=== PATIENT | female | born 1950 | race Caucasian/White ===

== ENCOUNTER 2018-10-06 14:53 | Inpatient (IN) | payer OTHER, MEDICARE ==
[~2018-10-06] VITALS: Ht 160 cm; Wt 66.7 kg
[2018-10-06 14:59] VITALS: Ht 160 cm; Wt 66.7 kg
--- NOTE | 2018-10-06 15:06 | NUR ---
PT HERE FOR CHEST PAIN THAT STARTED LAST NIGHT NON PROVOKED AND RADIATING TO THE LEFT SHOULDER. PAIN UPON ARRIVAL 08/09. 1 NITRO GIVEN BY EMS. NO ASA GIVEN DUE TO PATIENT STATING SHE CANNOT HAVE ASP DUE TO RECENT BOWEL OBSTRUCTION. PT ARRIVES ALERT AND ORIENTED AND SLIGHTY ANXIOUS. APPEARS PALE IN COLOR. ABD SOFT AND DISTENDED DUE TO B. OBSTRUCTION. PT CONNECTED TO TECHNICIAN AUTOMATIC AND EKG PERFORMED. PRESSURE LIKE PAIN INTERMITTENT. DR WEEMS AT BEDSIDE FOR EVAL
[2018-10-06 15:36] LABS: PLATELET COUNT 221 x10^3mcL (130-400)
[2018-10-06 15:37] LABS: CALCIUM 7.7 mg/dL (8.5-10.1); CARBON DIOXIDE 25.8 mmol/L (21-32); CHLORIDE SERUM 107 mmol/L (98-107); CREATININE SERUM 0.7 mg/dL (0.6-1.0); GFR1 > 60 mL/min; GLUCOSE SERUM 166 mg/dL (74-106); POTASSIUM SERUM 3.3 mmol/L (3.5-5.1); SODIUM SERUM 141 mmol/L (136-145)
[2018-10-06 15:38] LABS: BASOPHIL % 0 % (0-2); RED CELL DISTRIBUTION WIDTH 17.4 % (11.5-14.5)
[2018-10-06 15:44] LABS: ALKALINE PHOSPHATASE 156 U/L (46-116); ALT/SGPT 16 U/L (14-59); AST/SGOT 14 U/L (15-37); BILIRUBIN TOTAL 0.22 mg/dL (0.20-1.00)
[2018-10-06 15:50] LABS: ALBUMIN 1.9 g/dL (3.4-5.0); TOTAL PROTEIN, SERUM 5.1 g/dL (6.4-8.2)
[2018-10-06 16:14] LABS: rbc morphology (normal/abnorm) ABNORMAL (NORMAL)
[2018-10-06 16:16] LABS: ovalocyte/elliptocyte 1+; tear drop cell (dacryocyte) 1+
--- NOTE | 2018-10-06 16:43 | NUR ---
LAB AT BEDSIDE FOR T AND C BLOOD
--- NOTE | 2018-10-06 16:50 | NUR ---
PT AWARE OF BLOOD TRANSFUSION AND DOES NOT WANT ANOTHER IV STICK ATTEMPT. PT HAS 22G TO LEFT AC. WILL LET TELE NURSE KNOW
[2018-10-06 17:54] VITALS: BP 137/59
--- NOTE | 2018-10-06 18:03 | NUR ---
ASSUMED CARE OF PATIENT. ARRIVED FROM ED WITH AND RN AT SIDE. PATIENT APPEARS TREMULOUS AND ANXIOUS AT THIS TIME. MEDICATION LIST RECIEVED FROM GRAND DAUGHTER.
--- NOTE | 2018-10-06 18:05 | NUR ---
RECEIVED PT FROM ER, PT ADMIT FOR CHEST PAIN AND ANEMIA, PT IS A/O X4, VERBAL REPONSIVE, BUT PT HAS GENERALIZED TREMOR. PER STATMENT. PT HAS CENTRAL TREMOR PROBLEM. LUNG SOUND CLEAR BILATERAL, NO COUGH, NO SOB, PT IS ON TELE 1, NSR, DENY ANY CHEST PAIN AT THIS MOMENT, BOWEL SOUND PRESENT ALL 4 QUADRANTS, NO DISTENTION, NO TENDER. PEDAL PULSE PRESENT BOTH FEET, +1 EDEMA BLE, IV AT LEFT AC, NO LEAKING, NO INFILTRATION. ALL ADLS ASSIST, ALL NEED MET, CALL LIGHT IN REACH, WILL CONTINUE TO MONITOR.
[2018-10-06] MEDS ORDERED: NOR10 PO (18:12)
[2018-10-06] MEDS ORDERED: C-10001000 MG PO (18:13)
[2018-10-06] MEDS ORDERED: CARVEDILOL6.25 M1 PO (18:14)
[2018-10-06] MEDS ORDERED: PREDNISONE2.5 MG PO (18:15)
[2018-10-06] MEDS ORDERED: FERROUS SULFAT325 M2 PO (18:17)
[2018-10-06] MEDS ORDERED: FLUTICASON0.05 MG/Ac NS (18:20)
[2018-10-06] MEDS ORDERED: OMEPRAZOLE40 M1 PO (18:21)
[2018-10-06] MEDS ORDERED: TRAMADOL HCL50 MG PO (18:22)
[2018-10-06] MEDS ORDERED: FLECTOR1.3% TOP (18:24)
[2018-10-06] MEDS ORDERED: SPIRIVA RE2.5 MCG/Ac IH (18:25)
--- NOTE | 2018-10-06 18:32 | NUR ---
PER , EGD/COLONOSCOPY TOMORROW. WHEN PATIENT NOTIFIED, STATES SHE HAS DONE A COLONOSCOPY A FEW MONTHS AGO AND REFUSES TO DO ANOTHER. DR. ROSS NOTIFIED. STATES HE WILL COME IN AN DISCUSS WITH PATIENT AT ANOTHER TIME. TO HOLD OFF ON PROCEDURES FOR NOW. LAB ORDERS FOR VITAMIN B12, FOLIC ACID, FERRITIN, AND TIBC ORDERED.
--- NOTE | 2018-10-06 18:43 | NUR ---
MEDICATION RECONCILIATION COMPELTE, ATTEMPTING TO CONTACT , NO ANSWER.
--- NOTE | 2018-10-06 18:44 | NUR ---
PATIENT SEEN SITTING IN ROOM EATING DINNER. NO COMPLAINTS OF PAIN OR DISCOMFORT AT THIS TIME. FAMILY REMAINS AT BEDSIDE. WILL ENDORSE CARE TO ONCOMING RN.
--- NOTE | 2018-10-06 19:00 | NUR ---
[facility] SECRETARY DR.SIRRI MONTES.
--- NOTE | 2018-10-06 19:03 | NUR ---
PER ; TO HOLD SPIRIVA, DICLOFENAC, AND TRAMADOL. CONTINUE ALL OTHER HOME MEDICATIONS.
--- NOTE | 2018-10-06 20:01 | NUR ---
PT RECIEVED FROM DAY NURSE. PT RESTING IN BED COMFORTABLY AT THIS TIME. FAMILY AT BEDSIDE. A/OX4, CALM AND COOPERATIVE AT THIS TIME. TELE 1 NSR, DENIES CP, N/V, DIZZINESS, OR PALPATATIONS. PALPABLE PULSES, BLE EDEMA NOTED. BREATHING EVEN AND UNLABORED ON RA. SPO2 95%. ABD SOFT AND ROUND. DENIES PAIN TO PALPATION. TREMOR NOTED. PT STATES SHE HAS A TREMOR AT BASELINE. PT TO RECIEVE 1 UNIT PRBC TONIGHT. PT AND FAMILIES QUESTIONS AND CONCERNS ADDRESSED. BED AT LOWEST POSITION. CALL LIGHT WITHIN REACH. WILL CONTINUE TO MONITOR.
--- NOTE | 2018-10-06 20:47 | NUR ---
DR GOMES PAGED. DR GOMES STATED NO TYLENOL AND BENEDRY NEEDED PRE INFUSION AND NO LASIX NEEDED POST TRANSFUSION. INFORMED DR GOMES ABOUT PTS K 3.3, DR GOMES ORDERED 40 MEQ KCL PO X1.
[2018-10-06 21:10] VITALS: BP 177/76
[2018-10-06 22:06] VITALS: BP 142/67
--- NOTE | 2018-10-06 22:15 | NUR ---
BLOOD ADMINISTRATION INITATED AT THIS TIME. VSS. NO S/S OF PAIN OR DISTRESS. SEE ASSESMENT FOR VITALS.
[2018-10-06 22:30] VITALS: BP 145/63
[2018-10-07 01:35] VITALS: BP 152/73
--- NOTE | 2018-10-07 01:35 | NUR ---
BLOOD TRANSFUSION COMPLETED AT THIS TIME. POST TRANSFUSION VITALS OBTAINED. VSS. SEE ASSESMENT FOR VITALS.
--- NOTE | 2018-10-07 02:37 | NUR ---
PT COMPLAINING OF 5/10 SHOULDER PAIN. MEDICATED PT WTIH PRN NORCO. WILL CONTINUE TO MONITOR.
[2018-10-07 05:54] VITALS: BP 143/70
[2018-10-07 06:30] LABS: BASOPHIL % 0.3 % (0-2); PLATELET COUNT 251 x10^3mcL (130-400)
--- NOTE | 2018-10-07 06:33 | NUR ---
PT RESTING IN BED COMFORATBLY, NO S/S OF PAIN AT THIS TIME. BREATHING E/U ON RA. NO SIGNS OF ACUTE DISTRESS AT THIS TIME. BED AT LOWEST POSITION.CALL LIGHT WITHIN REACH. WILL CONTINUE TO MONITOR
[2018-10-07 06:49] LABS: CARBON DIOXIDE 24.9 mmol/L (21-32); CHLORIDE SERUM 110 mmol/L (98-107); CREATININE SERUM 0.5 mg/dL (0.6-1.0); GFR1 > 60 mL/min; GLUCOSE SERUM 73 mg/dL (74-106); POTASSIUM SERUM 4.1 mmol/L (3.5-5.1); SODIUM SERUM 144 mmol/L (136-145)
--- NOTE | 2018-10-07 07:56 | NUR ---
AT 0735 - RECEIVED PATIENT FROM NIGHT NURSE. AWAKE, ALERT AND ORIENTED. SAT UP IN BED AND ASSITED WITH BREAKFAST. IV SALINE LOCKED. NO C/O PAIN.
[2018-10-07 08:13] VITALS: BP 131/53
[2018-10-07 08:13] LABS: RED CELL DISTRIBUTION WIDTH 17.2 % (11.5-14.5)
[2018-10-07 08:15] VITALS: BP 146/71
--- NOTE | 2018-10-07 08:26 | NUR ---
PATIENT USED BEDSIDE COMDE AND RETURNED TO BED. GOOD TOLERANCE OF ACTIVITY.
--- NOTE | 2018-10-07 10:10 | NUR ---
SEEN BY DR SANDS. NO ADDITIONAL CARDIAC TREATMENTS REQUIRED AT THIS TIME EXCEPT FOR ECHOCARDIOGRAM. PATIENT NOW SITTING IN CHAIR. CALL LIGHT WITHIN REACH.
--- NOTE | 2018-10-07 10:41 | NUR ---
PATIENT HAD EPISODE OF DARK GREEN DIARRHEA. PATIENT HAD WALKED SELF FROM CHAIR TO TOILET. WASHED AND RETURNED TO BED. INSTRUCTED PATIENT TO ALWAYS CALL FOR NURSE AND NOT TO ATTEMPT GETTING OUT OF BED ALONE. BED EXIT ALARM ACTIVE.
--- NOTE | 2018-10-07 11:47 | NUR ---
SEEN BY DR ROSS. FOR REGULAR DIET. PATIENT MAY BE DISCHARGED HOME FORM GI PERSPECTIVE. DR TOLD OF PATIENT'S DIARRHEA. COLLECT STOOL FOR C-DIFF.
[2018-10-07 12:22] VITALS: BP 164/73
--- NOTE | 2018-10-07 15:11 | NUR ---
FAMILY VISITING. UPDATED ON CURRENT PLAN OF CARE.
--- NOTE | 2018-10-07 15:25 | NUR ---
PHYSICAL THERAPY NOTE ATTEMPTED FOR EVAL, PATIENT REFUSED AT THIS TIME
--- NOTE | 2018-10-07 15:54 | NUR ---
SEEN BY DR GIBSON. PATIENT MAY DISCHARGE HOME TODAY AFTER ECHOCARDIOGRAM IS DONE. FAMILY AT BEDSIDE. PATIENT AND FAMILY AWARE OF PLAN.
--- NOTE | 2018-10-07 16:43 | NUR ---
ECHOCARDIOGRAM AT BEDSIDE.
--- NOTE | 2018-10-07 17:10 | NUR ---
O2 SAT REMAINS AT 96% ON ROOM AIR. PATIENT'S TRANSPORT HOME WILL BE AFTER 1800. GIVEN 6 UNITS REGULAR INSULIN PER SLINDING SCALE FOR BLOOD GLUCOSE LEVEL OF 234.
[2018-10-07 17:13] VITALS: BP 141/74
--- NOTE | 2018-10-07 17:40 | NUR ---
BOTH IV CATHETERS REMOVED INTACT. PATIENT TAKEN OFF CARDIAC MONITORING. PATIENT DRESSED AND PREPARED FOR DISCHARGE. PRINTED DISCHARGE INSTRUCTIONS GIVEN AND EXPLAINED TO PATIENT AND FAMILY. PATIENT EATING DINNER BEFORE LEAVING.
--- NOTE | 2018-10-07 18:08 | NUR ---
DISCHARGED HOME WITH FAMILY. TAKEN TO CAR IN WHEELCHAIR BY DIE MOUNTER.
== END 2018-10-07 18:04 | disposition home or self-care (01) | DRG 392 ==
LOC: ED 14:53 → MU 16:29 → DU 16:29 → MU 17:36 → DU 17:47
PROVIDERS: Emergency Medicine; ADMIT Internal Medicine Pulmonary Disease
PROC: 30233N1 Transfusion of Nonautologous Red Blood Cells into Peripheral Vein, Percutaneous Approach (ICD-10-PCS; principal; 2018-10-06)
DX: K21.9 Gastro-esophageal reflux disease without esophagitis (principal); D63.8 Anemia in other chronic diseases classified elsewhere; F41.9 Anxiety disorder, unspecified; I87.2 Venous insufficiency (chronic) (peripheral); I10 Essential (primary) hypertension; G25.0 Essential tremor; M06.9 Rheumatoid arthritis, unspecified; M32.9 Systemic lupus erythematosus, unspecified; Z99.81 Dependence on supplemental oxygen; Z68.28 Body mass index [BMI] 28.0-28.9, adult
CPT/HCPCS: G0378; J7030; J7050; J7512; P9016; Q0092

== ENCOUNTER 2019-03-28 19:37 | Inpatient (IN) | payer OTHER, MEDICARE ==
[~2019-03-28] VITALS: Ht 160 cm; Wt 70.0 kg
[~2019-03-28 19:37] MED LIST: C-10001000 MG PO; CARVEDILOL6.25 M1 PO; FERROUS SULFAT325 M2 PO; FLECTOR1.3% TOP; FLUTICASON0.05 MG/Ac NS; NOR10 PO; OMEPRAZOLE40 M1 PO; PREDNISONE2.5 MG PO; SPIRIVA RE2.5 MCG/Ac IH; TRAMADOL HCL50 MG PO
[2019-03-28 19:51] VITALS: Ht 160 cm; Wt 70.0 kg
[2019-03-28 20:43] LABS: BASOPHIL % 0.2 % (0-2); PLATELET COUNT 148 x10^3mcL (130-400)
[2019-03-28 20:55] LABS: RED CELL DISTRIBUTION WIDTH 21.6 % (11.5-14.5)
[2019-03-28 21:05] LABS: CALCIUM 7.7 mg/dL (8.5-10.1); CARBON DIOXIDE 21.3 mmol/L (21-32); CHLORIDE SERUM 117 mmol/L (98-107); CREATININE SERUM 0.6 mg/dL (0.6-1.0); GFR1 > 60 mL/min; GLUCOSE SERUM 102 mg/dL (74-106); POTASSIUM SERUM 4.4 mmol/L (3.5-5.1); SODIUM SERUM 145 mmol/L (136-145)
[2019-03-28 21:06] LABS: rbc morphology (normal/abnorm) ABNORMAL (NORMAL)
[2019-03-28 21:08] LABS: tear drop cell (dacryocyte) 1+
[2019-03-28 21:10] LABS: ALKALINE PHOSPHATASE 91 U/L (46-116); ALT/SGPT 42 U/L (14-59); AST/SGOT 24 U/L (15-37); BILIRUBIN TOTAL 0.1 mg/dL (0.20-1.00)
[2019-03-28 21:11] LABS: ALBUMIN 1.4 g/dL (3.4-5.0); TOTAL PROTEIN, SERUM 4.1 g/dL (6.4-8.2)
[2019-03-29] VITALS (7 sets, daily range): BP systolic 105–167; BP diastolic 59–85
[2019-03-29 09:28] LABS: BASOPHIL % 0.3 % (0-2); PLATELET COUNT 131 x10^3mcL (130-400)
[2019-03-29 09:51] LABS: CALCIUM 7.5 mg/dL (8.5-10.1); CARBON DIOXIDE 18.8 mmol/L (21-32); CHLORIDE SERUM 117 mmol/L (98-107); CREATININE SERUM 0.6 mg/dL (0.6-1.0); GFR1 > 60 mL/min; GLUCOSE SERUM 89 mg/dL (74-106); MAGNESIUM 1.5 mg/dL (1.8-2.4); POTASSIUM SERUM 4.1 mmol/L (3.5-5.1); SODIUM SERUM 144 mmol/L (136-145)
[2019-03-29 10:04] LABS: rbc morphology (normal/abnorm) ABNORMAL (NORMAL)
[2019-03-30 06:34] VITALS: BP 135/75
[2019-03-30 07:37] LABS: BASOPHIL % 0.2 % (0-2); PLATELET COUNT 135 x10^3mcL (130-400)
[2019-03-30 07:52] LABS: RED CELL DISTRIBUTION WIDTH 20.8 % (11.5-14.5)
[2019-03-30 08:09] LABS: CALCIUM 7.3 mg/dL (8.5-10.1); CARBON DIOXIDE 21.9 mmol/L (21-32); CHLORIDE SERUM 115 mmol/L (98-107); CREATININE SERUM 0.6 mg/dL (0.6-1.0); GFR1 > 60 mL/min; GLUCOSE SERUM 75 mg/dL (74-106); MAGNESIUM 2.2 mg/dL (1.8-2.4); SODIUM SERUM 146 mmol/L (136-145)
[2019-03-30 08:43] VITALS: BP 136/68
[2019-03-30 12:12] LABS: rbc morphology (normal/abnorm) ABNORMAL (NORMAL)
[2019-03-30 12:44] VITALS: BP 134/70
[2019-03-30 15:54] VITALS: BP 134/70
[2019-03-30 16:01] VITALS: BP 134/70
[2019-03-30 16:22] VITALS: BP 115/70
== END 2019-03-30 18:25 | DRG 811 ==
LOC: ED 19:37 → DU 21:55
PROVIDERS: Emergency Medicine; Internal Medicine Pulmonary Disease; ADMIT Internal Medicine Pulmonary Disease
PROC: 30233N1 Transfusion of Nonautologous Red Blood Cells into Peripheral Vein, Percutaneous Approach (ICD-10-PCS; principal; 2019-03-28)
DX: D64.9 Anemia, unspecified (principal); E43 Unspecified severe protein-calorie malnutrition; I11.0 Hypertensive heart disease with heart failure; I50.9 Heart failure, unspecified; E83.42 Hypomagnesemia; E83.51 Hypocalcemia; G25.0 Essential tremor; I87.2 Venous insufficiency (chronic) (peripheral); I25.2 Old myocardial infarction; Z99.81 Dependence on supplemental oxygen
CPT/HCPCS: 83880; G0378; J1940; J2405; J3475; J3490; J7050; J7512; J7620; P9016; Q0092

== ENCOUNTER 2019-04-02 15:42 | Inpatient (IN) | payer OTHER, MEDICARE ==
[~2019-04-02] VITALS: Ht 170.2 cm; Wt 70.3 kg
[2019-04-02 16:50] LABS: UA SPECIFIC GRAVITY 1.015 (1.005-1.035); microscopic required? YES; urine erythrocyte 3+ (NEGATIVE)
[2019-04-02 16:55] LABS: BASOPHIL % 0.2 % (0-2); PLATELET COUNT 155 x10^3mcL (130-400)
[2019-04-02 16:56] LABS: RED CELL DISTRIBUTION WIDTH 21.2 % (11.5-14.5)
[2019-04-02 17:00] LABS: CALCIUM 7.5 mg/dL (8.5-10.1); CARBON DIOXIDE 20.9 mmol/L (21-32); CHLORIDE SERUM 113 mmol/L (98-107); CREATININE SERUM 0.5 mg/dL (0.6-1.0); GFR1 > 60 mL/min; GLUCOSE SERUM 109 mg/dL (74-106); POTASSIUM SERUM 4.4 mmol/L (3.5-5.1); SODIUM SERUM 141 mmol/L (136-145)
[2019-04-02 17:04] LABS: ALKALINE PHOSPHATASE 95 U/L (46-116); ALT/SGPT 46 U/L (14-59); AST/SGOT 25 U/L (15-37); BILIRUBIN TOTAL 0.2 mg/dL (0.20-1.00)
[2019-04-02 17:05] LABS: ALBUMIN 1.3 g/dL (3.4-5.0); TOTAL PROTEIN, SERUM 4.2 g/dL (6.4-8.2)
[2019-04-02 18:37] LABS: CHOLESTEROL/HDL RATIO 2.9
[2019-04-02 22:00] VITALS: BP 136/74
[2019-04-02 23:19] VITALS: BP 136/74
[2019-04-03 05:17] VITALS: BP 128/62
[2019-04-03 07:15] LABS: BASOPHIL % 0 % (0-2); CALCIUM 7.5 mg/dL (8.5-10.1); CARBON DIOXIDE 22.7 mmol/L (21-32); CHLORIDE SERUM 114 mmol/L (98-107); CREATININE SERUM 0.5 mg/dL (0.6-1.0); GFR1 > 60 mL/min; GLUCOSE SERUM 71 mg/dL (74-106); PLATELET COUNT 125 x10^3mcL (130-400); POTASSIUM SERUM 4.1 mmol/L (3.5-5.1); SODIUM SERUM 143 mmol/L (136-145)
[2019-04-03 09:02] VITALS: BP 136/67
[2019-04-03 12:21] VITALS: BP 147/68
[2019-04-03 14:25] LABS: BASOPHIL % 0.1 % (0-2); PLATELET COUNT 147 x10^3mcL (130-400)
[2019-04-03 14:39] LABS: RED CELL DISTRIBUTION WIDTH 20.7 % (11.5-14.5)
[2019-04-03 17:18] VITALS: BP 133/62
[2019-04-03 21:05] VITALS: BP 139/67
[2019-04-04 05:43] VITALS: BP 121/58
[2019-04-04 06:57] LABS: BASOPHIL % 0.3 % (0-2); PLATELET COUNT 136 x10^3mcL (130-400)
[2019-04-04 07:20] LABS: RED CELL DISTRIBUTION WIDTH 21.1 % (11.5-14.5)
[2019-04-04 07:32] LABS: CALCIUM 7.3 mg/dL (8.5-10.1); CHLORIDE SERUM 114 mmol/L (98-107); CREATININE SERUM 0.5 mg/dL (0.6-1.0); GFR1 > 60 mL/min; GLUCOSE SERUM 65 mg/dL (74-106); POTASSIUM SERUM 4.2 mmol/L (3.5-5.1); SODIUM SERUM 146 mmol/L (136-145)
[2019-04-04 09:08] VITALS: BP 136/61
[2019-04-04 13:43] VITALS: BP 120/59
[2019-04-04 17:03] VITALS: BP 122/59
[2019-04-04 20:07] VITALS: BP 127/65
[2019-04-05 05:30] VITALS: BP 120/68
[2019-04-05 06:31] LABS: BASOPHIL % 0.3 % (0-2); PLATELET COUNT 134 x10^3mcL (130-400)
[2019-04-05 07:03] LABS: SODIUM SERUM 146 mmol/L (136-145)
[2019-04-05 07:04] LABS: CALCIUM 7.6 mg/dL (8.5-10.1); CARBON DIOXIDE 25.3 mmol/L (21-32); CHLORIDE SERUM 114 mmol/L (98-107); CREATININE SERUM 0.6 mg/dL (0.6-1.0); GFR1 > 60 mL/min; GLUCOSE SERUM 76 mg/dL (74-106); POTASSIUM SERUM 4.7 mmol/L (3.5-5.1)
[2019-04-05 08:04] VITALS: BP 122/65
[2019-04-05 11:56] VITALS: BP 122/65
[2019-04-05 13:21] VITALS: BP 106/51
[2019-04-05 16:34] VITALS: BP 116/58
[2019-04-05 20:43] VITALS: BP 123/65
[2019-04-06 06:20] VITALS: BP 121/61
[2019-04-06 06:29] LABS: BASOPHIL % 0.2 % (0-2); PLATELET COUNT 132 x10^3mcL (130-400)
[2019-04-06 06:40] LABS: RED CELL DISTRIBUTION WIDTH 21.5 % (11.5-14.5)
[2019-04-06 07:00] LABS: CALCIUM 7.3 mg/dL (8.5-10.1); CARBON DIOXIDE 25.1 mmol/L (21-32); CHLORIDE SERUM 113 mmol/L (98-107); CREATININE SERUM 0.5 mg/dL (0.6-1.0); GFR1 > 60 mL/min; GLUCOSE SERUM 79 mg/dL (74-106); POTASSIUM SERUM 4.6 mmol/L (3.5-5.1); SODIUM SERUM 144 mmol/L (136-145)
[2019-04-06 09:49] VITALS: BP 146/73
[2019-04-06 13:43] VITALS: BP 146/57
[2019-04-06 18:00] VITALS: BP 120/66
[2019-04-06 20:54] VITALS: BP 121/66
[2019-04-07 05:56] VITALS: BP 131/62
[2019-04-07 06:50] LABS: BASOPHIL % 0.4 % (0-2); PLATELET COUNT 135 x10^3mcL (130-400)
[2019-04-07 07:04] LABS: CALCIUM 7.4 mg/dL (8.5-10.1); CARBON DIOXIDE 25.3 mmol/L (21-32); CHLORIDE SERUM 113 mmol/L (98-107); CREATININE SERUM 0.5 mg/dL (0.6-1.0); GFR1 > 60 mL/min; GLUCOSE SERUM 73 mg/dL (74-106); SODIUM SERUM 145 mmol/L (136-145)
[2019-04-07 07:37] LABS: RED CELL DISTRIBUTION WIDTH 21.4 % (11.5-14.5)
[2019-04-07 08:43] LABS: rbc morphology (normal/abnorm) ABNORMAL (NORMAL)
[2019-04-07 09:10] VITALS: BP 121/58
[2019-04-07 13:09] VITALS: BP 102/55
[2019-04-07 17:48] VITALS: BP 106/53
[2019-04-07 22:54] VITALS: BP 115/62
[2019-04-08 06:21] VITALS: BP 139/65
[2019-04-08 07:33] LABS: BASOPHIL % 0.3 % (0-2); PLATELET COUNT 150 x10^3mcL (130-400)
[2019-04-08 07:36] LABS: RED CELL DISTRIBUTION WIDTH 21.5 % (11.5-14.5)
[2019-04-08 07:54] LABS: CALCIUM 8.1 mg/dL (8.5-10.1); CHLORIDE SERUM 112 mmol/L (98-107); CREATININE SERUM 0.5 mg/dL (0.6-1.0); GFR1 > 60 mL/min; GLUCOSE SERUM 71 mg/dL (74-106); POTASSIUM SERUM 5.5 mmol/L (3.5-5.1); SODIUM SERUM 144 mmol/L (136-145)
[2019-04-08 09:10] VITALS: BP 134/66
[2019-04-08] MEDS ORDERED: [UNRECOGNIZED DRUG - REMARK] MC (12:05)
[2019-04-08 12:30] VITALS: BP 127/58
[2019-04-08 12:39] VITALS: BP 127/58
[2019-04-08 17:30] VITALS: BP 110/55
[2019-04-08 20:56] LABS: BASOPHIL % 0.2 % (0-2); PLATELET COUNT 131 x10^3mcL (130-400)
[2019-04-08 21:10] LABS: rbc morphology (normal/abnorm) ABNORMAL (NORMAL)
== END 2019-04-08 20:45 | DRG 545 ==
LOC: ED 15:42 → DU 17:50
PROVIDERS: Emergency Medicine; Internal Medicine; ADMIT Family Medicine
DX: M34.1 CR(E)ST syndrome (principal); J96.01 Acute respiratory failure with hypoxia; E43 Unspecified severe protein-calorie malnutrition; R53.2 Functional quadriplegia; N39.0 Urinary tract infection, site not specified; I69.351 Hemiplegia and hemiparesis following cerebral infarction affecting right dominant side; I11.0 Hypertensive heart disease with heart failure; I50.9 Heart failure, unspecified; E88.09 Other disorders of plasma-protein metabolism, not elsewhere classified; L89.152 Pressure ulcer of sacral region, stage 2; L08.89 Other specified local infections of the skin and subcutaneous tissue; L89.899 Pressure ulcer of other site, unspecified stage; B96.1 Klebsiella pneumoniae [K. pneumoniae] as the cause of diseases classified elsewhere; B96.5 Pseudomonas (aeruginosa) (mallei) (pseudomallei) as the cause of diseases classified elsewhere; I25.10 Atherosclerotic heart disease of native coronary artery without angina pectoris; D63.8 Anemia in other chronic diseases classified elsewhere; I34.0 Nonrheumatic mitral (valve) insufficiency; M06.9 Rheumatoid arthritis, unspecified; J45.909 Unspecified asthma, uncomplicated; I25.2 Old myocardial infarction; Z86.718 Personal history of other venous thrombosis and embolism
CPT/HCPCS: 36600; 83880; 85378; 97110-GP; 97530-GP; G0378; J1580; J1644; J1940; J2270; J2916; J7040; J7050; J7512; J7620; P9016; P9047; Q0092